=== PATIENT | male | born 1935 | race Caucasian/White ===

== ENCOUNTER → 2018-08-14 | Outpatient (CLI) | payer OTHER ==
[~2018-08-14] MED LIST: APAP500 PO; ASPIR 8181 MG PO; ASPIRIN EC81 M1 PO; CARDURA1 MG PO; CIPROFLOXACIN250 M2 PO; COUMADIN 2 MG TA2 M1 PO; COUMADIN 5 MG TA5 M1 PO; FISH OIL 1,4001 EACH PO; FLOMAX0.4 MG PO; GEMFIBROZIL 60600 MG PO; HYDROCODONE-AP1 EAC6 PO; IRON159 MG PO; KEFLEX250 MG PO; LASIX 40 MG TAB40 M2 PO; LISINOPRIL-HCT1 EAC1 PO; MELOXICAM7.5 MG PO; OCUVITE ADULT1 EACH PO; OCUVITE TABLET1 EAC1 PO; PRAVASTATIN SOD10 MG PO; SLO-NIACIN500 MG PO; SLO-NIACIN750 MG PO; SLOW NIACIN PO; STOOL SOFTENER50 MG PO; TAMSULOSIN HCL0.4 M1 PO; TRAMADOL 50 MG50 MG PO; VITAMIN D-32000 UNIT PO; VITAMIN D5000 UNIT PO
--- NOTE | ~2018-08-14 | 2DMMODE ---
[facility] [place] [address] 2 D/M-MODE ECHOCARDIOGRAM Name: SHERICEISHMAEL L Room #: [facility]#: [id number] Admission: 08/14/18 Attend Phys: Gavin Herbert MD Discharge: Date of : 31 Date of Service: 08/14/18 1055 Report #: [id number] THIS REPORT FOR: //name// APPROVED REPORT Study performed: 08/14/2018 09:58:23 EXAM: Comprehensive 2D, Doppler, and color-flow Echocardiogram Patient Location: Out-Patient Status: routine BSA: 2.17 HR: 65 bpm BP: 130/60 mmHg Other Information Study Quality: Adequate Indications Pacemaker Hypertension/HDD 2D Dimensions RVDd: 39.72 mm IVSd: 8.58 (7-11mm) LVOT Diam: 21.99 (18-24mm) LVDd: 45.55 mm PWd: 10.91 (7-11mm) Ascending Ao: 38.12 (22-36mm) LVDs: 32.73 (25-40mm) Aortic Root: 41.14 mm IVC: 8.00 mm Volumes Left Atrial Volume (Systole) Single Plane 4CH: 40.30 mL Single Plane 2CH: 49.56 mL LA ESV Index: 23.00 mL/m2 Aortic Valve AoV Peak Lamine.: 1.80 m/s AO Peak Gr.: 12.94 mmHg AI Vmax: 3.91 m/s AI Butler: 3.10 m/s2 AI PHT: 369.79 ms Mitral Valve E/A Ratio: 0.6 MV Decel. Time: 245.47 ms [facility] [address] [place] [address] 2 D/M-MODE ECHOCARDIOGRAM Name: SHERICEISHMAEL Kvng Room #: [facility]#: [id number] Admission: 08/14/18 Attend Phys: Gavin Herbert MD Discharge: Date of : 31 Date of Service: 08/14/18 1055 Report #: [id number] E Max Lamine.: 0.62 m/s MV A Lamine.: 0.98 m/s MV PHT: 71.19 ms IVRT: 93.43 ms Pulmonary Valve PV Peak Lamine.: 1.23 m/s PV Peak Gr.: 6.10 mmHg Pulmonary Vein P Vein S: 0.69 m/s P Vein A: 0.29 m/s P Vein D: 0.32 m/s P Vein A Dur.: 110.7 msec P Vein S/D Ratio: 2.16 Tricuspid Valve TR Peak Lamine.: 2.65 m/s RAP Estimate: 5.00 mmHg TR Peak Gr.: 28.13 mmHg PA Pressure: 33.00 mmHg Left Ventricle The left ventricle is normal size. There is normal left ventricular wall thickness. The left ventricular systolic function is normal. The left ventricular ejection fraction is within the normal range. LVEF is 55-60%. Mild diastolic dysfunction is present (impaired relaxation pattern). Right Ventricle Right ventricle is at the upper limits of normal. The right ventricular systolic function is normal. Atria The left atrium size is normal. The right atrium size is normal. Aortic Valve Aortic valve is mildly calcified. Mild to moderate aortic regurgitation. There is no aortic valvular stenosis. Mitral Valve The mitral valve is normal in structure. Trace mitral regurgitation. No evidence of mitral valve stenosis. Tricuspid Valve The tricuspid valve is normal in structure. Trace tricuspid regurgitation. PAP is estimated at 33 mmHg. Pulmonic Valve [facility] [address] [place] [address] 2 D/M-MODE ECHOCARDIOGRAM Name: ISHMAEL SMILEY Room #: [facility]#: [id number] Admission: 08/14/18 Attend Phys: Gavin Herbert MD Discharge: Date of : 31 Date of Service: 08/14/18 1055 Report #: [id number] Pulmonic valve is not well visualized. Trace pulmonic regurgitation. Great Vessels Aortic root is mildly dilated at 4.1 cm. IVC is normal in size and collapses >50% with inspiration. Pericardium There is no pericardial effusion. <Conclusion> The left ventricle is normal size. There is normal left ventricular wall thickness. The left ventricular systolic function is normal. Mild diastolic dysfunction is present (impaired relaxation pattern). Right ventricle is at the upper limits of normal. The left atrium size is normal. Mild to moderate aortic regurgitation. Trace mitral regurgitation. Trace tricuspid regurgitation. PAP is estimated at 33 mmHg. <ELECTRONICALLY SIGNED> By: Gavin Herbert MD 08/14/18 1055 1055 1055 Gavin Herbert MD /INF
== END ==
LOC: NUC 07:17
DX: I10 Essential (primary) hypertension (principal); I35.1 Nonrheumatic aortic (valve) insufficiency; I35.8 Other nonrheumatic aortic valve disorders; I44.2 Atrioventricular block, complete; E78.5 Hyperlipidemia, unspecified; Z87.891 Personal history of nicotine dependence; Z95.0 Presence of cardiac pacemaker

== ENCOUNTER → 2020-02-21 | Outpatient (CLI) | payer OTHER | LOC: SJCVCIMAG 14:25 | PROVIDERS: ATTEND Internal Medicine Cardiovascular Disease | DX: I35.1 Nonrheumatic aortic (valve) insufficiency (principal); I77.810 Thoracic aortic ectasia; I44.7 Left bundle-branch block, unspecified; R94.31 Abnormal electrocardiogram [ECG] [EKG]; I10 Essential (primary) hypertension; I49.5 Sick sinus syndrome; E78.00 Pure hypercholesterolemia, unspecified; R60.9 Edema, unspecified; Z79.82 Long term (current) use of aspirin; Z79.899 Other long term (current) drug therapy; Z82.49 Family history of ischemic heart disease and other diseases of the circulatory system; Z87.891 Personal history of nicotine dependence; Z95.0 Presence of cardiac pacemaker ==

== ENCOUNTER → 2020-11-04 | Outpatient (CLI) | payer OTHER | LOC: SJCVC 12:39 | PROVIDERS: ATTEND Internal Medicine Cardiovascular Disease | DX: R94.31 Abnormal electrocardiogram [ECG] [EKG] (principal); I44.0 Atrioventricular block, first degree; I44.7 Left bundle-branch block, unspecified; I49.5 Sick sinus syndrome; I10 Essential (primary) hypertension; E78.00 Pure hypercholesterolemia, unspecified; R60.9 Edema, unspecified; M19.90 Unspecified osteoarthritis, unspecified site; G47.30 Sleep apnea, unspecified; Z92.3 Personal history of irradiation; Z95.0 Presence of cardiac pacemaker; Z85.46 Personal history of malignant neoplasm of prostate; Z87.891 Personal history of nicotine dependence; Z79.899 Other long term (current) drug therapy; Z79.82 Long term (current) use of aspirin ==

== ENCOUNTER → 2021-05-08 | Outpatient (CLI) | payer OTHER | LOC: SJCVC 13:08 | PROVIDERS: ATTEND Internal Medicine Cardiovascular Disease | DX: I45.4 Nonspecific intraventricular block (principal); I45.9 Conduction disorder, unspecified; R06.00 Dyspnea, unspecified; I10 Essential (primary) hypertension; R60.9 Edema, unspecified; E78.00 Pure hypercholesterolemia, unspecified; Z79.82 Long term (current) use of aspirin; Z87.891 Personal history of nicotine dependence; Z79.899 Other long term (current) drug therapy ==